=== PATIENT | male | born 1995 | race Two or more races ===

== ENCOUNTER 2025-09-11 03:03 | Emergency (ER) | payer SELFPAY ==
[~2025-09-11] VITALS: Ht 177.8 cm; Wt 118.2 kg
[2025-09-11 04:05] VITALS: TEMP 97.1
[2025-09-11 04:26] LABS: PLATELET COUNT (AUTO) 266 K/uL (150-450); RED BLOOD CELL COUNT(AUTO) 4.95 MIL/uL (4.50-5.90); RED CELL DISTRIBUTION WIDTH 13.3 % (11.5-14.5); WHITE BLOOD COUNT (AUTO) 8.8 K/uL (4.5-11.0)
[2025-09-11 04:59] LABS: CALCIUM, TOTAL 8.0 mg/dL (8.8-10.5); CREATININE 1.05 mg/dL (0.60-1.30); GLOMERULAR FILTR. RATE CALC > 60 mL/min (>60); GLUCOSE,RANDOM 166 mg/dL (70-110); SODIUM SERUM 137 mmol/L (136-145); UREA NITROGEN, BLOOD 16 mg/dL (7-18)
[2025-09-11] MEDS: SODIUM CHLORIDE 0.9% 1,000 ML IV ONE (05:51)
[2025-09-11 07:46] VITALS: BP 118/66; PULSE 90; RESP 16; O2SAT 98
== END 2025-09-11 08:55 | disposition home or self-care (01) ==
LOC: EMS 03:05
DX: F10.129 Alcohol abuse with intoxication, unspecified (principal); Y90.6 Blood alcohol level of 120-199 mg/100 ml
CPT/HCPCS: 99283; 96360; 96361; 80048; 85025; 36415; G0480; J7030